=== PATIENT | male | born 1980 | race Two or more races ===

== ENCOUNTER 2021-09-16 17:19 | Emergency (ER) | payer BC, OTHER ==
[~2021-09-16] VITALS: Ht 172.7 cm; Wt 113.4 kg
[2021-09-16 23:12] VITALS: BP 168/95
== END 2021-09-17 02:16 | disposition left against medical advice (07) ==
LOC: ER 17:19
DX: U07.1 COVID-19 (principal); R05.9 Cough, unspecified; R51.9 Headache, unspecified; Z53.21 Procedure and treatment not carried out due to patient leaving prior to being seen by health care provider; Z20.822 Contact with and (suspected) exposure to COVID-19
CPT/HCPCS: 36415; 71045; 87426

== ENCOUNTER 2023-08-31 18:14 | Inpatient (IN) | payer SELFPAY ==
[~2023-08-31] VITALS: Ht 175.3 cm; Wt 93.4 kg
[2023-08-31 19:04] LABS: Basophils # (auto) 0.1 10 ^3/uL (0-0.2); Basophils % (auto) 0.4 % (0.0-2.0); Eosinophils # (auto) 0 10 ^3/uL (0-0.8); Hematocrit 49.7 % (41.0-53.0); Hemoglobin 16.8 g/dL (13.5-17.5); Lymphocytes % (auto) 8.7 % (10.0-50.0); Mean Corpuscular Hemoglobin 30.7 pg (28.0-32.0); Mean Corpuscular Hgb Conc. 33.9 g/dL (32.0-36.0); Mean Corpuscular Volume 90.6 fL (80.0-100.0); Monocytes # (auto) 1.2 10 ^3/uL (0-1.3); Monocytes % (auto) 9.6 % (0.0-12.0); Neutrophils # (auto) 9.8 10 ^3/uL (1.6-8.6); Neutrophils % (auto) 81.3 % (37.0-80.0); Nucleated Red Blood Cells % 0.2 %; Red Blood Cells 5.48 10^6/uL (4.5-5.90); Red Cell Distribution Width 12.9 % (11.8-14.3)
[2023-08-31 19:25] LABS: Alanine Aminotransferase 38 U/L (7-40); Albumin 4.3 g/dL (3.2-4.8); Alkaline Phosphatase 77 U/L (46-116); Anion Gap 6 (5-15); Aspartate Aminotransferase 41 U/L (13-40); BUN/Creatinine Ratio 13.7 (10.0-20.0); Bilirubin, Total 0.5 mg/dL (0.2-1.0); Blood Urea Nitrogen 16 mg/dL (9-23); Calcium 8.6 mg/dL (8.7-10.4); Carbon Dioxide 30 mmol/L (20-30); Chloride 102 mmol/L (98-107); Glucose 242 mg/dL (74-106); Potassium 4.3 mmol/L (3.5-5.1); Sodium 138 mmol/L (136-145); Total Protein 6.6 g/dL (5.7-8.2)
[2023-08-31] MEDS ORDERED: AZIT1POW PO (19:32)
[2023-09-01] MEDS ORDERED: ALBUTEROL SULF 2.5 MG/0.5ML(0.5%) NEB SOLN HHN ONE (01:45)
[2023-09-01] MEDS ORDERED: methylPREDNISolone SOD SUCC 125 MG/2 ML VL IM ONE (01:45)
[2023-09-01] MEDS ORDERED: IPRATROPIUM BROM 0.5 MG/2.5ML INH SOL HHN ONE (01:45)
[2023-09-01] MEDS ORDERED: ALBUTEROL SULF 2.5 MG/0.5ML(0.5%) NEB SOLN NEB PRN (03:15)
[2023-09-01] MEDS ORDERED: ACETAMINOPHEN 325 MG TAB PO PRN (03:15)
[2023-09-01] MEDS ORDERED: MORPHINE SULFATE INJ 2 MG/ml SYRG IV PRN (03:15)
[2023-09-01] MEDS ORDERED: NITROGLYCERIN 0.4 MG SL TAB SL PRN (03:15)
[2023-09-01] MEDS ORDERED: IPRATROPIUM BROM 0.5 MG/2.5ML INH SOL NEB PRN (03:15)
[2023-09-01] MEDS ORDERED: TEMAZEPAM 15 MG CAP PO PRN (03:15)
[2023-09-01] MEDS ORDERED: ONDANSETRON HCL 4 MG/2 ML VIAL IV PRN (03:15)
[2023-09-01 03:24] LABS: Urine Bacteria NONE SEEN /hpf (None Seen); Urine Blood Negative /uL (Negative); Urine Clarity Clear (Clear); Urine Color Yellow (Yellow); Urine Hyaline Cast FEW /lpf (0 - 2); Urine Mucus FEW (None Seen); Urine Protein, UAD TRACE (Negative); Urine Specific Gravity 1.028 (1.001-1.035); Urine Urobilinogen Normal (Negative); Urine WBC 3 /hpf (0 - 3); Urine pH 5.5 (5.0-8.0)
[2023-09-01 05:18] VITALS: BP 100/65; PULSE 89; RESP 18; TEMP 96.1; O2SAT 95
[2023-09-01 06:06] VITALS: O2SAT 98
[2023-09-01 06:45] VITALS: PULSE 102; RESP 20; O2SAT 92
[2023-09-01 07:30] LABS: Amphetamine Screen, Urine Pos (NEGATIVE); Barbiturate Scree,Urine Neg (NEGATIVE); Benzodiazephine Screen, Urine Neg (NEGATIVE); Cocaine Screen, Urine Neg (NEGATIVE); Opiate Scree,Urine Neg (NEGATIVE)
[2023-09-01 07:31] LABS: Cannabinoid Screen, Urine Neg (NEGATIVE); Phencyclidine Screen, Urine Neg (NEGATIVE)
[2023-09-01 08:09] LABS: COVID19 ANTIGEN SOFIA FIA NEGATIVE (NEGATIVE); Rapid Influenza B Negative (Negative)
[2023-09-01 08:13] LABS: Rapid Influenza A Positive (Negative)
[2023-09-01] MEDS ORDERED: cefTRIAXone 1GM/50ML D5W 50 ML IV SCH (09:00)
[2023-09-01] MEDS ORDERED: methylPREDNISolone SOD SUCC 40 MG/ML VL IV SCH ×2 (10:00→22:00)
[2023-09-01] MEDS ORDERED: AZITHROMYCIN 500MG/ 250ML 250 ML IV SCH (10:00)
[2023-09-01 14:00] VITALS: TEMP 98.8
[2023-09-01] MEDS ORDERED: DEXTROSE (50%) 50ML SYRG IV PRN ×2 (14:15→15:30)
[2023-09-01 14:29] VITALS: PULSE 108; RESP 20; O2SAT 96
[2023-09-01] MEDS ORDERED: INSULIN LANTUS (GLARGINE) 1 /0.01ml (100units/ml) SC ONE ×3 (15:30→23:32)
[2023-09-01] MEDS ORDERED: ACCU-CHEK COMFORT CURVE STRIP VI SCH (17:00)
[2023-09-01] MEDS ORDERED: InsuLIN REG 1unit/0.01ml Soln (100units/ml) SC SCH ×3 (17:00→22:00)
[2023-09-01] MEDS: ACCU-CHEK COMFORT CURVE STRIP VI SCH ×2 (17:00→23:17)
[2023-09-01] MEDS ORDERED: InsuLIN REG 1unit/0.01ml Soln (100units/ml) ONE ×3 (19:11→23:33)
[2023-09-01 19:30] VITALS: PULSE 100; RESP 27; O2SAT 91
[2023-09-01] MEDS ORDERED: INSULIN LANTUS (GLARGINE) 1 /0.01ml (100units/ml) SC SCH (22:00)
[2023-09-02 00:10] VITALS: O2SAT 91
[2023-09-02 05:00] VITALS: BP 131/82; PULSE 74; RESP 24; O2SAT 98
[2023-09-02 06:15] LABS: Basophils # (auto) 0 10 ^3/uL (0-0.2); Basophils % (auto) 0.1 % (0.0-2.0); Eosinophils # (auto) 0 10 ^3/uL (0-0.8); Hematocrit 47.5 % (41.0-53.0); Hemoglobin 16.2 g/dL (13.5-17.5); Lymphocytes # (auto) 0.7 10 ^3/uL (0.4-5.4); Lymphocytes % (auto) 4.4 % (10.0-50.0); Mean Corpuscular Hemoglobin 30.4 pg (28.0-32.0); Mean Corpuscular Hgb Conc. 34.1 g/dL (32.0-36.0); Mean Corpuscular Volume 88.9 fL (80.0-100.0); Monocytes # (auto) 0.8 10 ^3/uL (0-1.3); Monocytes % (auto) 5.3 % (0.0-12.0); Neutrophils # (auto) 13.6 10 ^3/uL (1.6-8.6); Neutrophils % (auto) 90.2 % (37.0-80.0); Nucleated Red Blood Cells % 0.1 %; Red Blood Cells 5.34 10^6/uL (4.5-5.90); Red Cell Distribution Width 13.3 % (11.8-14.3)
[2023-09-02 06:30] LABS: Alanine Aminotransferase 30 U/L (7-40); Albumin 4.2 g/dL (3.2-4.8); Alkaline Phosphatase 80 U/L (46-116); Anion Gap 8 (5-15); Aspartate Aminotransferase 31 U/L (13-40); BUN/Creatinine Ratio 18.1 (10.0-20.0); Bilirubin, Total 0.4 mg/dL (0.2-1.0); Blood Urea Nitrogen 17 mg/dL (9-23); Carbon Dioxide 25 mmol/L (20-30); Chloride 105 mmol/L (98-107); Cholesterol 181 mg/dL (< 200); HDL Cholesterol 50 mg/dL (40-59); LDL Cholesterol 121 mg/dL (< 100); Potassium 4.2 mmol/L (3.5-5.1); Sodium 138 mmol/L (136-145); Total Protein 6.8 g/dL (5.7-8.2); Triglycerides 89 mg/dL (< 150)
[2023-09-02 06:32] LABS: Glucose 278 mg/dL (74-106)
[2023-09-02 06:42] LABS: Magnesium 2.2 mg/dL (1.6-2.6)
== END 2023-09-02 06:45 | disposition left against medical advice (07) | DRG 193 ==
LOC: ER 18:14 → TELE 09-01 03:15
PROVIDERS: ADMIT Nurse Practitioner; ATTEND Internal Medicine Geriatric Medicine
DX: J18.9 Pneumonia, unspecified organism (principal); J96.21 Acute and chronic respiratory failure with hypoxia; J45.901 Unspecified asthma with (acute) exacerbation; J20.9 Acute bronchitis, unspecified; I10 Essential (primary) hypertension; Z20.822 Contact with and (suspected) exposure to COVID-19; E78.5 Hyperlipidemia, unspecified; Z53.29 Procedure and treatment not carried out because of patient's decision for other reasons; E11.9 Type 2 diabetes mellitus without complications; F17.210 Nicotine dependence, cigarettes, uncomplicated; Z80.9 Family history of malignant neoplasm, unspecified; Z83.3 Family history of diabetes mellitus
CPT/HCPCS: 36415; 71046; 71275; 80053; 80061; 80307; 80320; 81001; 82947; 83036; 83735; 83880; 84484; 85025; 85379; 87426; 87804; 94640; 96372; G0378; J1815